=== PATIENT | male | born 1980 | race African-American/Black ===

== ENCOUNTER 2019-10-15 23:09 | Emergency (ER) | payer SELFPAY ==
[~2019-10-15] VITALS: Ht 175.3 cm; Wt 68.0 kg
[2019-10-16 00:28] LABS: CLARITY URINE CLOUDY (CLEAR); COLOR URINE YELLOW (YELLOW); KETONES URINE NEGATIVE (NEGATIVE); LEUKOCYTE ESTERASE URINE TRACE (NEGATIVE); NITRITE URINE NEGATIVE (NEGATIVE); OCCULT BLOOD URINE NEGATIVE (NEGATIVE); PROTEIN URINE NEGATIVE (NEGATIVE); SPECIFIC GRAVITY URINE 1.026 (1.005-1.030)
[2019-10-16 02:18] VITALS: BP 116/74
== END 2019-10-16 02:20 | disposition home or self-care (01) ==
LOC: ER 23:09
DX: N39.0 Urinary tract infection, site not specified (principal)
CPT/HCPCS: 81003; 99283

== ENCOUNTER 2019-11-16 22:03 | Emergency (ER) | payer SELFPAY ==
[~2019-11-16] VITALS: Ht 177.8 cm; Wt 85.6 kg
[2019-11-17] MEDS ORDERED: ONDANSETRON 4MG ODT PO ONE (00:45)
[2019-11-17] MEDS ORDERED: IBUPROFEN 600MG TABLET PO ONE (00:45)
[2019-11-17 01:26] LABS: BASOPHILS % 0.7 % (0.0-2.0); EOSINOPHILS % 3.3 % (0.0-5.0); HEMATOCRIT. 40.5 % (42.0-52.0); HEMOGLOBIN. 14.2 g/dL (14.0-18.0); LYMPHOCYTES % 38.4 % (20.0-50.0); MEAN CORPUSCULAR HEMOGLOBIN 28.6 pg (28.0-32.0); MEAN CORPUSCULAR VOLUME 81.8 fL (80.0-94.0); MEAN PLATELET VOLUME 8.1 fl (7.4-10.4); MONOCYTES % 7.8 % (2.0-8.0); NEUTROPHILS % 49.8 % (40.0-76.0); PLATELET 337 x1000/uL (130-400); RED BLOOD CELL COUNT 4.95 mill/uL (4.7-6.1); RED CELL DISTRIBUTION WIDTH 14.2 % (11.6-14.6)
[2019-11-17 01:31] LABS: CHLORIDE 107 mEq/L (98-107)
[2019-11-17 01:35] LABS: ETHANOL BLOOD < 10 mg/dL
[2019-11-17 02:15] LABS: CLARITY URINE TURBID (CLEAR); COLOR URINE YELLOW (YELLOW); KETONES URINE NEGATIVE (NEGATIVE); LEUKOCYTE ESTERASE URINE NEGATIVE (NEGATIVE); NITRITE URINE NEGATIVE (NEGATIVE); OCCULT BLOOD URINE NEGATIVE (NEGATIVE); PROTEIN URINE NEGATIVE (NEGATIVE); SPECIFIC GRAVITY URINE 1.026 (1.005-1.030)
[2019-11-17 02:26] LABS: *AMPHETAMINES SCREEN URINE NEGATIVE (NEGATIVE); *BARBITURATES SCREEN URINE NEGATIVE (NEGATIVE)
[2019-11-17 02:27] LABS: *BENZODIAZEPINES SCREEN URINE NEGATIVE (NEGATIVE); *COCAINE SCREEN URINE NEGATIVE (NEGATIVE); METHADONE URINE SCREEN NEGATIVE (NEGATIVE); OPIATES URINE SCREEN NEGATIVE (NEGATIVE); PHENCYCLIDINE URINE SCREEN NEGATIVE (NEGATIVE)
[2019-11-17 02:28] LABS: CANNABINOID URINE SCREEN NEGATIVE (NEGATIVE)
[2019-11-17 02:39] VITALS: BP 115/89
== END 2019-11-17 02:40 | disposition home or self-care (01) ==
LOC: ER 23:33
DX: J06.9 Acute upper respiratory infection, unspecified (principal); R10.9 Unspecified abdominal pain; L53.9 Erythematous condition, unspecified; R09.89 Other specified symptoms and signs involving the circulatory and respiratory systems; R51 Headache; M79.10 Myalgia, unspecified site
CPT/HCPCS: 36415; 80053; 80305; 80320; 81003; 83690; 85025; 87804; 99283; Q0162; G0480

== ENCOUNTER 2023-08-20 17:33 | Emergency (ER) | payer SELFPAY ==
[~2023-08-20] VITALS: Ht 180.3 cm; Wt 100.0 kg
[~2023-08-20 17:33] MED LIST: TOPUD PO
[2023-08-20 17:39] VITALS: BP 109/79; PULSE 82; RESP 16; TEMP 98.4; O2SAT 98
[2023-08-20 18:05] LABS: CLARITY URINE CLEAR (CLEAR); COLOR URINE YELLOW (YELLOW); GLUCOSE URINE NEGATIVE (NEGATIVE); KETONES URINE TRACE (NEGATIVE); LEUKOCYTE ESTERASE URINE NEGATIVE (NEGATIVE); NITRITE URINE NEGATIVE (NEGATIVE); OCCULT BLOOD URINE NEGATIVE (NEGATIVE); PH URINE 6.5 (4.5-8.0); PROTEIN URINE NEGATIVE (NEGATIVE); SPECIFIC GRAVITY URINE 1.031 (1.005-1.030)
[2023-08-20 18:07] LABS: BASOPHILS % 0.4 % (0.0-2.0); EOSINOPHILS % 3.9 % (0.0-5.0); HEMATOCRIT. 43.9 % (42.0-52.0); HEMOGLOBIN. 15.3 g/dL (14.0-18.0); LYMPHOCYTES % 34.9 % (20.0-50.0); MEAN CORPUSCULAR HEMOGLOBIN 29.2 pg (28.0-32.0); MEAN CORPUSCULAR HGB CONC 34.8 g/dL (31.0-37.0); MEAN CORPUSCULAR VOLUME 83.8 fL (80.0-94.0); MEAN PLATELET VOLUME 7.9 fl (7.4-10.4); MONOCYTES % 7.5 % (2.0-8.0); NEUTROPHILS % 53.3 % (40.0-76.0); PLATELET 314 x1000/uL (130-400); RED BLOOD CELL COUNT 5.24 mill/uL (4.7-6.1); RED CELL DISTRIBUTION WIDTH 14.1 % (11.6-14.6); WHITE BLOOD COUNT 6.9 x1000/uL (4.5-11.0)
[2023-08-20 18:16] LABS: PROTHROMBIN TIME 10.5 sec (9.6-11.0)
[2023-08-20 18:26] LABS: ALANINE AMINOTRANSFERASE 19 IU/L (10-49); ALBUMIN 4.2 g/dL (3.2-4.8); ASPARTATE AMINOTRANSFERASE 26 IU/L (<34); BILIRUBIN TOTAL 0.5 mg/dL (0.1-1.0); CALCIUM 9.3 mg/dL (8.7-10.4); CARBON DIOXIDE 29 mEq/L (21-32); CHLORIDE 104 mEq/L (98-107); GLUCOSE 97 mg/dL (70-105); POTASSIUM 3.8 mEq/L (3.5-5.1); PROTEIN TOTAL 6.6 g/dL (6.0-8.3); SODIUM 140 mEq/L (136-145); TROPONIN I HIGH SENSITIVITY 4 ng/L (3.0-53); UREA NITROGEN BLOOD 9 mg/dL (9-23)
[2023-08-20] MEDS ORDERED: IBUPROFEN 600MG TABLET PO STA (20:28)
[2023-08-20] MEDS ORDERED: ONDA4TAB50 MT (22:21)
[2023-08-20] MEDS ORDERED: FAMO20TA8 PO (22:21)
[2023-08-20] MEDS ORDERED: NAPR-681 PO (22:21)
== END 2023-08-21 07:25 | disposition home or self-care (01) ==
LOC: ER 17:33
DX: J06.9 Acute upper respiratory infection, unspecified (principal); K52.9 Noninfective gastroenteritis and colitis, unspecified; M94.0 Chondrocostal junction syndrome [Tietze]
CPT/HCPCS: 36415; 71045; 80053; 81003; 84484; 85025; 93005; 99285